=== PATIENT | male | born 1950 | race Caucasian/White ===

== ENCOUNTER 2024-08-13 07:57 | Inpatient (IN) | payer OTHER, MEDICAID ==
[2024-08-13] VITALS (7 sets, daily range): BP systolic 136–148; BP diastolic 46–58; PULSE 48–83; RESP 14–18; TEMP 97.5–98.1; O2SAT 93–98
[~2024-08-13] VITALS: Ht 182.9 cm; Wt 134.5 kg
[2024-08-13] MEDS: CIPROFLOXACIN 400MG/200ML 200 ML IV ONE (07:46)
[~2024-08-13 07:57] MED LIST: AMIO200T33 PO; APIX5TAB PO; DILT180T PO; HYDR50TA32 PO; LORA-622 PO; LOSA-535 PO; MAGN1TAB29 PO; METO25TA36 PO; PANT40TA2 PO; SIMV5TAB14 PO
[2024-08-13] MEDS ORDERED: fentaNYL CITRATE 100 MCG/2 ML VL ONE ×2 (08:56→09:41)
[2024-08-13] MEDS ORDERED: PROPOFOL 10 MG/ML 20 ML IV ONE (08:56)
[2024-08-13] MEDS ORDERED: HYDROmorphone HCL 2 MG/ML VL/or syr ONE (09:19)
[2024-08-13] MEDS ORDERED: ePHEDrine SULFATE 50 MG/ML AMP ONE (09:26)
[2024-08-13] MEDS ORDERED: MEPERIDINE HCL (25 MG/ML) 1ML VIAL IV PRN (11:00)
[2024-08-13] MEDS ORDERED: ACETAMINOPHEN IV 1000 MG/100ML (10MG/ML) IV PRN (11:00)
[2024-08-13] MEDS: ONDANSETRON HCL 4 MG/2 ML VIAL IV ONE (11:00)
[2024-08-13] MEDS ORDERED: HYDROmorphone HCL 2 MG/ML VL/or syr IV PRN (11:00)
[2024-08-13] MEDS ORDERED: MORPHINE SULFATE INJ 2 MG/ml SYRG IV PRN ×2 (11:15→15:30)
[2024-08-13] MEDS ORDERED: NITROGLYCERIN 0.4 MG SL TAB SL PRN (11:15)
[2024-08-13 11:55] LABS: Chloride 104 mmol/L (98-107); Potassium 3.9 mmol/L (3.5-5.1); Sodium 139 mmol/L (136-145)
[2024-08-13 11:56] LABS: Anion Gap 8 (5-15); Calcium 9.8 mg/dL (8.7-10.4); Carbon Dioxide 27 mmol/L (20-31)
--- NOTE | 2024-08-13 12:00 | DVHNC2 ---
Procedure - OPERATIVE REPORT Pre-op. Diagnosis: BPH with LUTS Post-op. Diagnosis: Bladder neck mass Right trigone mass BPH Operation: Transurethral resection of bladder tumor (TURBT) Transurethral resection of Prostate (TURP) Anesthesia: General Indications: The indications, risks, complications, alternatives and benefits of transurethral resection of prostate gland were also discussed with patient. He was aware of specific risk/complications including but not limited to infection, bleeding, urinary incontinence, impotence, retrograde ejaculation, recurrent sc ar formation (strictures) and possible need for additional therapy(-ies). He was also aware of the alternative of this procedure including conservative management, medical therapy, minimally invasive procedures such as TUNA, TUMT, Urolift, and other forms of prostatectomy such as laser enucleation and open simple prostatectomy. Patient was competent and understood the discussion. Given these risks patient consented to proceed with the surgery. Details of Procedure: The patient was brought to the operating room and placed upon the table. After induction of anesthesia, patient was placed in the dorsal lithotomy position. Patient's genitalia and peritoneal regions were prepped and draped in standard surgical fashion. A rigid resectoscope was assembled and introduced into the urinary bladder. TURBT: The entire contour of the bladder was evaluated. There was a large papillary bladder lesion on the right bladder neck and trigone. These were multifocal papillary lesions on the right bladder neck and trigone . Using the loop electrocautery, I resected the tissue in their entirety. The UO was not identifiable due to the mass effect. Lesion was > 5 cm in total surface area. Chips were then evacuated. Hemostasis was established and no bleeding was noted with inflow of irrigation stopped. TURP: Next, using a wide loop bipolar cautery, the prostate gland was resected in systematic fashion using the standard cautery settings from the bladder neck to verumontanum, taking care not to injure the external sphincter. First the median lobe was resected followed by the lateral lobes The ureteric orifices were noted and avoided of any thermal injury. Once satisfied with the resection and an open prostatic channel was created, hemostasis was established. Next, the prostatic chips were irrigated with the Elic evacuator and sent for pathology. At this point the inflow was stopped and satisfactory hemostasis was noted. The resectoscope was taken out and a 22 Fr 3-way Gottlieb catheter was placed for postoperative irrigation and drainage of bladder. Patient tolerated the procedure well. He was awoken and taken to RR in stable condition. EBL - minimal Specimens: Bladder Lesion/mass Resection Prostatic Chips Complications: None Findings: Notes: Ureteral orifices were not identified during cystoscopy. Will obtain COSTA and bladder US to look for ureteral jetting JOSÉ MANUEL FOURNIER MD August 13, 2024 12:00
[2024-08-13 12:01] LABS: BUN/Creatinine Ratio 10.8 (10.0-20.0); Blood Urea Nitrogen 19 mg/dL (9-23); Glucose 105 mg/dL (74-106)
--- NOTE | 2024-08-13 12:40 | DVH ---
INDICATION: Hydronephrosis TECHNIQUE: Multiple real-time sonographic images of the kidneys and bladder were obtained. COMPARISON: None FINDINGS: The right kidney measures 11.8 cm in length, which is normal in size. There is increased ec hogenicity of the right kidney. Mild hydronephrosis. The left kidney measures 11.7 cm in length, which is normal in size. There is normal echogenicity of the left kidney. No hydronephrosis. No large intraluminal masses are seen in the bladder. IMPRESSION: Echogenic bilateral kidneys suggestive of chronic medical renal disease. Mild hydronephrosis
--- NOTE | 2024-08-13 15:26 | DVHHP2 ---
Review of Systems Allergies: Coded Allergies: NO KNOWN ALLERGIES (Unverified , 08/28/22) Medications Current Medications Medications Dose Ordered Sig/Reid Route Start Time Stop Time Status Last Admin Dose Admin Nitroglycerin 0.4 mg Q5MINP PRN SL 08/13/24 11:15 Morphine Sulfate 2 mg Q30M PRN IV 08/13/24 11:15 Exam Vital Signs Vital Signs Date Time Temp Pulse Resp B/P (MAP) Pulse Ox O2 Delivery O2 Flow Rate FiO2 08/13/24 14:59 48 16 127/52 (77) 97 08/13/24 10:44 Mask 7.0 08/13/24 10:44 97.3 97.3 08/13/24 10:44 96 Labs/Xrays Labs Test 08/13/24 11:25 Range/Units Sodium Level 139 136-145 mmol/L Potassium Level 3.9 3.5-5.1 mmol/L Chloride Level 104 98-107 mmol/L Carbon Dioxide Level 27 20-31 mmol/L Anion Gap 8 5-15 Blood Urea Nitrogen 19 9-23 mg/dL Creatinine 1.76 H 0.700-1.30 mg/dL Glomerular Filtration Rate Calc 40 >90 mL/min BUN/Creatinine Ratio 10.8 10.0-20.0 Serum Glucose 105 74-106 mg/dL Calcium Level 9.8 8.7-10.4 mg/dL Assessment/Plan Assessment/Plan see dictated note Plan discussed with: Patient My Orders Orders - ELIZABETH LERNER MD Procedure Category Date Status Time Admit ADMIT 08/13/24 Transmitted 13:41 Pantoprazole Tablet PHA 08/14/24 Verified (Protonix Tablet) 06:00 NS PHA 08/13/24 Verified 15:30 Date of Service: August 13, 2024 Billing Provider: ELIZABETH LERNER MD Common Visit Codes: [id number] INP/OBS CARE (HIGH) Secondary Visit Codes: [id number] CARE PLAN 30 MINUTES ELIZABETH LERNER MD August 13, 2024 15:26
[2024-08-13] MEDS: SODIUM CHLORIDE 0.9% 1,000 ML IV SCH (15:30)
[2024-08-13] MEDS ORDERED: ONDANSETRON HCL 4 MG/2 ML VIAL IV PRN (15:30)
[2024-08-13] MEDS ORDERED: HYDROcodone-ACET 5/325MG TAB PO PRN (15:30)
[2024-08-13] MEDS ORDERED: ACETAMINOPHEN 325 MG TAB PO PRN (15:30)
--- NOTE | 2024-08-13 15:38 | DVHHP ---
ADMIT DATE: 08/13/2024 HISTORY OF PRESENT ILLNESS: The patient is a 73-year-old gentleman who is being admitted after he underwent surgery for transurethral resection of a bladder tumor and a transurethral resection of prostate. At this time, the patient denies any significant pain. No chest pain. No shortness of breath. No nausea or vomiting. REVIEW OF SYSTEMS: Review of rest of systems, otherwise currently negative. PAST MEDICAL HISTORY: Significant for hypertension, atrial fibrillation, hyperlipidemia. MEDICATIONS: He takes amiodarone, Eliquis, diltiazem, losartan, metoprolol, Protonix, simvastatin. ALLERGIES: No known drug allergies. SOCIAL HISTORY: He denies smoking or alcohol. He lives with his son and [id number]. FAMILY HISTORY: Negative. PHYSICAL EXAMINATION: GENERAL: The patient is awake and alert. VITAL SIGNS: Temperature of 97.3, pulse of 48 per minute, blood pressure 127/52. SHEENT: Unremarkable. NECK: There is no JVD. No pedal edema. LUNGS: Equal bilaterally. No added sounds. CARDIOVASCULAR SYSTEM: S1 and S2 are regular. There is bradycardia. ABDOMEN: Soft. There is no organomegaly. NEUROLOGIC: Nonfocal. MUSCULOSKELETAL: Normal. ASSESSMENT AND PLAN: * Hypertension, for which the patient's blood pressure medication will be held and blood pressure will be monitored. * Atrial fibrillation with secondary hypercoagulable state. The patient's metoprolol and amiodarone will be held in view of current bradycardia. * Obesity. * Hyperlipidemia. * Status post transurethral resection of bladder mass and prostate, for which she will be followed up by Dr. Jackson. * Questionable acute on chronic renal failure with vasomotor nephropathy. The patient's kidney function will be monitored. * Advanced care planning. The patient is a FULL CODE. Time spent was 18 minutes. MD CHERELLE Green/ANGIE TID: [id number] RECEIPT: [id number]
--- NOTE | 2024-08-13 16:05 | DVH ---
INDICATION: htn TECHNIQUE: Frontal view of the chest. COMPARISON: None FINDINGS: Finding. The heart and mediastinal contours are grossly unremarkable. There is no evidence of pleura l disease. The lungs are clear. The bony structures of the chest are intact without fracture. IMPRESSION: 1. No evidence of acute disease.
[2024-08-14 01:02] VITALS: BP 120/60; PULSE 63; RESP 18; TEMP 97.9; O2SAT 93
[2024-08-14 05:00] VITALS: BP 130/43; PULSE 61; RESP 18; TEMP 97.9; O2SAT 93
[2024-08-14] MEDS: PANTOPRAZOLE 40 MG TAB PO SCH (05:03)
[2024-08-14 06:12] LABS: Basophils # (auto) 0.1 10 ^3/uL (0-0.2); Basophils % (auto) 0.5 % (0.0-2.0); Eosinophils # (auto) 0.2 10 ^3/uL (0-0.8); Eosinophils % (auto) 2.3 % (0.0-7.0); Hematocrit 39.6 % (41.0-53.0); Hemoglobin 13.4 g/dL (13.5-17.5); Lymphocytes # (auto) 2.2 10 ^3/uL (0.4-5.4); Lymphocytes % (auto) 22.5 % (10.0-50.0); Mean Corpuscular Hgb Conc. 33.8 g/dL (32.0-36.0); Mean Corpuscular Volume 85.9 fL (80.0-100.0); Monocytes # (auto) 0.9 10 ^3/uL (0-1.3); Monocytes % (auto) 9.4 % (0.0-12.0); Neutrophils # (auto) 6.3 10 ^3/uL (1.6-8.6); Neutrophils % (auto) 65.3 % (37.0-80.0); Platelet Count (auto) 231 10^3/uL (140-450); Red Cell Distribution Width 14.6 % (11.8-14.3); White Blood Cell 9.7 10^3/uL (4.4-10.8)
[2024-08-14 06:17] LABS: Alanine Aminotransferase 16 U/L (7-40); Alkaline Phosphatase 73 U/L (46-116); Anion Gap 9 (5-15); Aspartate Aminotransferase 18 U/L (13-40); BUN/Creatinine Ratio 10.4 (10.0-20.0); Bilirubin, Total 0.4 mg/dL (0.2-1.0); Blood Urea Nitrogen 17 mg/dL (9-23); Calcium 8.8 mg/dL (8.7-10.4); Carbon Dioxide 27 mmol/L (20-31); Chloride 102 mmol/L (98-107); Glucose 103 mg/dL (74-106); Potassium 4.2 mmol/L (3.5-5.1); Sodium 138 mmol/L (136-145); Total Protein 6.7 g/dL (5.7-8.2)
[2024-08-14 08:00] VITALS: PULSE 60; PULSE 62; RESP 18; O2SAT 93
[2024-08-14 08:07] LABS: PSA Free 1.35 ng/mL; Prostate Specific Antigen 3.9 ng/mL (0.0-4.0)
[2024-08-14 08:59] VITALS: BP 121/79; PULSE 60; RESP 20; TEMP 98.5; O2SAT 93
[2024-08-14 13:00] VITALS: BP 135/57; PULSE 62; RESP 18; TEMP 97.9; O2SAT 94
--- NOTE | 2024-08-14 13:19 | DVHPN2 ---
Reviewed: Care Plan, H&P, Labs, Medications, Previous Orders, Radiology Changes from previous H/P or p: No Changes Objective Vitals Vital Signs Date Time Temp Pulse Resp B/P (MAP) Pulse Ox O2 Delivery O2 Flow Rate FiO2 08/14/24 08:59 98.5 60 20 121/79 (93) 93 98.5 08/14/24 08:00 Room Air* 0 21 Intake/Output Intake and Output 08/14/24 07:00 Intake Total 970 ml Output Total 4850 ml Balance -3880 ml Intake Oral 470 ml IV Total 500 ml Output Urine Total 4850 ml Medications Current Medications Medications Dose Ordered Sig/Reid Route Start Time Stop Time Status Last Admin Dose Admin Nitroglycerin 0.4 mg Q5MINP PRN SL 08/13/24 11:15 Morphine Sulfate 2 mg Q30M PRN IV 08/13/24 11:15 Pantoprazole Sodium 40 mg DAILY@0600 PO 08/14/24 06:00 08/14/24 05:03 40 MG Sodium Chloride 1,000 ml @ 60 mls/hr [id number] IV 08/13/24 15:30 08/14/24 08:34 60 MLS/HR Acetaminophen 650 mg Q6HP PRN PO 08/13/24 15:30 Acetaminophen/ Hydrocodone Bitart 1 tab Q6HPRN PRN PO 08/13/24 15:30 Morphine Sulfate 1 mg Q4HP PRN IV 08/13/24 15:30 Ondansetron HCl 4 mg Q6HPRN PRN IV 08/13/24 15:30 Laboratory Results Laboratory Tests 08/14/24 05:08 Chemistry Test 08/14/24 05:08 Albumin 4.0 g/dL (3.2-4.8) Calcium Level 8.8 mg/dL (8.7-10.4) Total Protein 6.7 g/dL (5.7-8.2) LFT Test 08/14/24 05:08 Alanine Aminotransferase (ALT) 16 U/L (7-40) Alkaline Phosphatase 73 U/L (46-116) Aspartate Amino Transferase (AST) 18 U/L (13-40) Total Bilirubin 0.4 mg/dL (0.2-1.0) Labs and/or images reviewed: Labs reviewed by me, Image(s) reviewed by me Assessment/Plan Assessment/Plan * Status post transurethral resection of bladder mass and prostate, for which Hypertension, for which the patient's blood pressure medication will be held and blood pressure will be monitored. * Atrial fibrillation with secondary hypercoagulable state. The patient's metoprolol and amiodarone will be held in view of current bradycardia. * Obesity. * Hyperlipidemia. * Questionable acute on chronic renal failure with vasomotor nephropathy. The patient's kidney function will be monitored. * time spent 50 minutes Patient is full code Plan discussed with: Patient Date of Service: August 14, 2024 Billing Provider: LORENZA LUNA MD Common Visit Codes: [id number] INP/OBS CARE(HIGH) LORENZA LUNA MD August 14, 2024 13:19
--- NOTE | 2024-08-14 13:22 | DVHDS2 ---
Discharge Summary Date of Admission August 13, 2024 at 11:03 Date of Discharge: August 14, 2024 Admitting Diagnosis Transurethral resection of the prostate Wounds: Transurethral resection of the prostate and bladder mass Labs/Diagnostic Data: Laboratory Results Test 08/14/24 05:08 08/13/24 11:25 White Blood Count 9.7 10^3/uL (4.4-10.8) Red Blood Count 4.60 10^6/uL (4.5-5.90) Hemoglobin 13.4 g/dL (13.5-17.5) Hematocrit 39.6 % (41.0-53.0) Mean Corpuscular Volume 85.9 fL (80.0-100.0) Mean Corpuscular Hemoglobin 29.0 pg (28.0-32.0) Mean Corpuscular Hemoglobin Concent 33.8 g/dL (32.0-36.0) Red Cell Distribution Width 14.6 % (11.8-14.3) Platelet Count 231 10^3/uL (140-450) Mean Platelet Volume 6.7 fL (6.9-10.8) Neutrophils (%) (Auto) 65.3 % (37.0-80.0) Lymphocytes (%) (Auto) 22.5 % (10.0-50.0) Monocytes (%) (Auto) 9.4 % (0.0-12.0) Eosinophils (%) (Auto) 2.3 % (0.0-7.0) Basophils (%) (Auto) 0.5 % (0.0-2.0) Neutrophils # (Auto) 6.3 10 ^3/uL (1.6-8.6) Lymphocytes # (Auto) 2.2 10 ^3/uL (0.4-5.4) Monocytes # (Auto) 0.9 10 ^3/uL (0-1.3) Eosinophils # (Auto) 0.2 10 ^3/uL (0-0.8) Basophils # (Auto) 0.1 10 ^3/uL (0-0.2) Nucleated Red Blood Cells 0.0 % Sodium Level 138 mmol/L (136-145) Potassium Level 4.2 mmol/L (3.5-5.1) Chloride Level 102 mmol/L (98-107) Carbon Dioxide Level 27 mmol/L (20-31) Anion Gap 9 (5-15) Blood Urea Nitrogen 17 mg/dL (9-23) Creatinine 1.64 mg/dL (0.700-1.30) Glomerular Filtration Rate Calc 44 mL/min (>90) BUN/Creatinine Ratio 10.4 (10.0-20.0) Serum Glucose 103 mg/dL (74-106) Calcium Level 8.8 mg/dL (8.7-10.4) Total Bilirubin 0.4 mg/dL (0.2-1.0) Aspartate Amino Transferase (AST) 18 U/L (13-40) Alanine Aminotransferase (ALT) 16 U/L (7-40) Alkaline Phosphatase 73 U/L (46-116) Total Protein 6.7 g/dL (5.7-8.2) Albumin 4.0 g/dL (3.2-4.8) Free Prostate Specific Antigen 1.35 ng/mL (N/A) Percent Free Prostate Specific Ag 34.6 % (.) Prostate Specific Antigen Total 3.9 ng/mL (0.0-4.0) Other Laboratory Tests 08/14/24 05:08 Brief Hx & Hospital Course: Patient with hypertension AFib hypercholesterolemia admitted after Transurethral resection of the bladder mass and prostate by Dr. Jackson. Patient had three-way bladder irrigation and Gottlieb was removed and patient is able to urinate. Dr. Jackson cleared for discharge Discharged home Consults/Reason for consult Urology Dr. Jackson Operations or Procedures Transurethral resection of the prostate and bladder mass Condition at Discharge: Fair Final Diagnosis/Problems List * Status post transurethral resection of bladder mass and prostate, Hypertension, for which the patient's blood pressure medication will be held and blood pressure will be monitored. * Atrial fibrillation with secondary hypercoagulable state. The patient's metoprolol and amiodarone will be held in view of current bradycardia. * Obesity. * Hyperlipidemia. * Questionable acute on chronic renal failure with vasomotor nephropathy. The patient's kidney function will be monitored. * time spent 50 minutes Discharge Disposition: Home Discharge Instruct/Medications Diet: Cardiac 2g Na,low cholest Activity: Light activity Follow Up/Referral: Follow up with the Dr. Jackson resume all previous home meds Medications: None 35 (Time taken for discharge summary 35 minutes) Discharge Statement: "Patient was advised to return to the ER or call 911 if any headaches, dizziness, shortness of breath, chest pain, abdominal pain, bleeding, fevers, or worsening of medical condition. Patient was counseled about treatment plan, medications, possible side effects, patient�verbalized understanding. All questions were answered to the best of my ability. This discharge took greater then 30 minutes in planning, reviewing documentation, counseling the patient, and discussing with other team members." ASSESSMENT ASSESSMENT Hospital Course Improved Assessment * Status post transurethral resection of bladder mass and prostate, Hypertension, for which the patient's blood pressure medication will be held and blood pressure will be monitored. * Atrial fibrillation with secondary hypercoagulable state. The patient's metoprolol and amiodarone will be held in view of current bradycardia. * Obesity. * Hyperlipidemia. * Questionable acute on chronic renal failure with vasomotor nephropathy. The patient's kidney function will be monitored. * time spent 50 minutes Date of Service: August 14, 2024 Billing Provider: LORENZA LUNA MD Common Visit Codes: [id number] INP/OBS CARE(HIGH) LORENZA LUNA MD August 14, 2024 13:22
[2024-08-14 14:58] VITALS: BP 135/57; PULSE 62; RESP 18; TEMP 97.9; O2SAT 94
== END 2024-08-14 15:32 | disposition home or self-care (01) | DRG 668 ==
LOC: SUR 07:57 → OVERFLOW 11:03 → TELE-CENTR 15:38
PROVIDERS: ADMIT Family Medicine; ATTEND Family Medicine
PROC: 0TBB8ZZ Excision of Bladder, Via Natural or Artificial Opening Endoscopic (ICD-10-PCS; principal; 2024-08-13 09:10)
DX: D49.4 Neoplasm of unspecified behavior of bladder (principal); N17.0 Acute kidney failure with tubular necrosis; D68.69 Other thrombophilia; I10 Essential (primary) hypertension; I48.91 Unspecified atrial fibrillation; E66.9 Obesity, unspecified; E78.00 Pure hypercholesterolemia, unspecified; N40.0 Benign prostatic hyperplasia without lower urinary tract symptoms; Z68.38 Body mass index [BMI] 38.0-38.9, adult; Z79.899 Other long term (current) drug therapy
CPT/HCPCS: 36415; 71045; 76775; 80048; 80053; 84154; 85025; A4344; G0378; J2704

== ENCOUNTER 2024-09-30 08:31 | Outpatient (CLI) | payer OTHER, MEDICAID | END 2024-09-30 17:00 | disposition home or self-care (01) | LOC: LAB 08:31 | PROVIDERS: ATTEND Urology | DX: R97.20 Elevated prostate specific antigen [PSA] (principal) | CPT/HCPCS: 84153 ==

== ENCOUNTER 2024-12-31 09:21 | Day surgery (SDC) | payer OTHER, MEDICAID ==
[2024-12-28 11:56] LABS: Hematocrit 39.4 % (41.0-53.0); Hemoglobin 13.4 g/dL (13.5-17.5); Mean Corpuscular Hemoglobin 29.4 pg (28.0-32.0); Mean Corpuscular Volume 86.1 fL (80.0-100.0); Nucleated Red Blood Cells % 0.0 %
[2024-12-28 12:16] LABS: INR 1.06 (0.9-1.15); Partial Thromboplastin Time 28.7 SEC (24.5-34.5); Prothrombin Time 11.2 sec (9.3-11.8)
[2024-12-28 13:17] LABS: Alanine Aminotransferase 30 U/L (7-40); Albumin 4.3 g/dL (3.2-4.8); Alkaline Phosphatase 89 U/L (46-116); Anion Gap 10 (5-15); BUN/Creatinine Ratio 9.6 (10.0-20.0); Blood Urea Nitrogen 15 mg/dL (9-23); Calcium 9.3 mg/dL (8.7-10.4); Carbon Dioxide 25 mmol/L (20-31); Chloride 105 mmol/L (98-107); Glucose 103 mg/dL (74-106); Potassium 4.7 mmol/L (3.5-5.1); Sodium 140 mmol/L (136-145); Total Protein 7.7 g/dL (5.7-8.2)
[2024-12-28 13:20] LABS: Bilirubin, Total 0.3 mg/dL (0.2-1.0)
[2024-12-28 13:31] LABS: Urine Protein, UAD Negative (Negative)
[~2024-12-31] VITALS: Ht 182.9 cm; Wt 127.0 kg
--- NOTE | 2024-12-31 10:23 | DVHHP2 ---
GI H&P Pre-Op Assessment Date: 12/31/24 Chief complaint: Positive Cologuard test HPI: per clinic note Past medical history: per clinic note Past surgical history: per clinic note Family history: per clinic note Physical exam: General: NAD, AAOX3 HEENT: PERRL, no scleral icterus, normal hearing, gums without lesions or bleeding, oropharynx clear without erythema or exudate. Neck: Supple without enlargement of the thyroid, or lymphadenopathy. Chest: Normal size and shape, no tenderness, lung max clear to auscultation and percussion, nonlabored breathing. Heart: RRR, no murmur Abdomen: non-distended, no tenderness to palpation, +BS, no hepatosplenomegaly Extremities: no edema Neurological: CN II-XII intact, sensation intact in all extremities, 5+ strength in all extremities Skin: No rashes, No jaundice Assessment: -: Positive Cologuard test Plan: - Colonoscopy - Risks (bleeding, infection, perforation, reaction to sedation medications and cardiopulmonary arrest) and benefit of the procedure were explained to patient. Patient agrees to undergo the procedure. VINCENT MCHUGH MD Dec 31, 2024 10:23
[2024-12-31] MEDS ORDERED: ONDANSETRON HCL 4 MG/2 ML VIAL ONE (10:41)
[2024-12-31] MEDS ORDERED: PROPOFOL 10 MG/ML 20 ML IV ONE (10:41)
[2024-12-31] MEDS ORDERED: SODIUM CHLORIDE LOCK 10 ML ONE (10:41)
[2024-12-31] MEDS ORDERED: fentaNYL CITRATE 100 MCG/2 ML VL ONE (10:41)
[2024-12-31] MEDS ORDERED: MIDAZOLAM HCL 2MG/2ML 2ml VIAL (1mg/ml) ONE (10:41)
[2024-12-31 11:07] VITALS: PULSE 54; RESP 14; TEMP 97.5; O2SAT 99
--- NOTE | 2024-12-31 11:10 | DVHDS2 ---
Physician Discharge Progress N Final Diagnosis: colon polyps, diverticulosis, internal hemorrhoids Operations or Procedures: Operations or Procedures Colonoscopy with snare polypectomy Condition on Discharge: Good Disposition: Home Discharge Instructions: Diet: Regular Activity: No Restrictions, As Tolerated Medications: Resume previous home medications Follow Up Care: Discharge Statement: "Patient was advised to return to the ER or call 911 if any headaches, dizziness, shortness of breath, chest pain, abdominal pain, bleeding, fevers, or worsening of medical condition. Patient was counseled about treatment plan, medications, possible side effects, patientverbalized understanding. All questions were answered to the best of my ability. This discharge took greater then 30 minutes in planning, reviewing documentation, counseling the patient, and discussing with other team members." VINCENT MCHUGH MD Dec 31, 2024 11:10
--- NOTE | 2024-12-31 11:10 | DVHOP2 ---
Operative Report DATE OF OPERATION: 12/31/24 PROCEDURE: Colonoscopy. PREOPERATIVE INDICATION: The patient is a 74 -year-old male undergoing colonoscopy for colon cancer screening. POSTOPERATIVE DIAGNOSES: 1. A 4 mm descending colon polyp was removed with cold snare and retrieved. 2. A 5 mm descending colon polyp was removed with hot snare and retrieved. 3. Few diverticulosis 4. Small internal hemorrhoids PROCEDURE PERFORMED BY: Alex Adams M.D. SCOPE: Olympus videocolonoscope. ASA CLASS: 3 PREOPERATIVE MEDICATIONS: MAC with Dr Clemente PROCEDURE IN DETAIL: After obtaining an informed consent, the patient was placed on left lateral decubitus position. He was then sedated with the above medications. A rectal examination was performed that was normal. The colonoscope was then passed through the anus into the rectosigmoid and through the descending, transverse, and ascending colon up to the cecum with visualization of the appendiceal orifice, base of the cecum and the ileocecal valve. A 4 mm descending colon polyp was removed with cold snare and retrieved. A 5 mm descending colon polyp was removed with hot snare and retrieved. There was a few small diverticulosis. There were small internal hemorrhoids The c olonoscope was then withdrawn. The patient tolerated the procedure well without difficulty. WITHDRAWAL TIME: 11 minutes QUALITY OF THE PREP: Springer Bowel Prep score: 5 COMPLICATIONS : None SPECIMENS: Colon polyps DISPOSITION: D/C to home PLAN: 1. Repeat colonoscopy base on biopsy result ALEX ADAMS MD Dec 31, 2024 11:10
[2024-12-31] MEDS ORDERED: MORPHINE SULFATE 4 MG/ML SYR/VIAL IV PRN (11:15)
[2024-12-31] MEDS ORDERED: HYDROmorphone HCL 2 MG/ML VL/or syr IV PRN ×2 (11:15)
[2024-12-31] MEDS ORDERED: MORPHINE SULFATE INJ 2 MG/ml SYRG IV PRN (11:15)
[2024-12-31] MEDS ORDERED: METOCLOPRAMIDE HCL 5MG/ml INJ 2ml VIAL IV PRN (11:15)
[2024-12-31] MEDS ORDERED: KETOROLAC TROMETH 30 MG/ML 1ML VIAL IV ONE (11:15)
[2024-12-31 11:20] VITALS: BP 132/56; PULSE 54; RESP 20; O2SAT 97
== END 2024-12-31 11:50 | disposition home or self-care (01) ==
LOC: GI 09:21
PROVIDERS: ATTEND Internal Medicine Gastroenterology
DX: R19.5 Other fecal abnormalities (principal); D12.4 Benign neoplasm of descending colon; K63.5 Polyp of colon; K57.30 Diverticulosis of large intestine without perforation or abscess without bleeding; K64.8 Other hemorrhoids; I10 Essential (primary) hypertension; I48.91 Unspecified atrial fibrillation; N40.0 Benign prostatic hyperplasia without lower urinary tract symptoms; E78.00 Pure hypercholesterolemia, unspecified; M10.9 Gout, unspecified; Z96.652 Presence of left artificial knee joint
CPT/HCPCS: 36415; 45385; 80053; 81003; 85025; 85610; 85730; 88305; J2250; J2405; J2704; J3010; J7030